=== PATIENT | female | born 1965 | race Asian ===

== ENCOUNTER 2023-09-11 19:47 | Emergency (ER) | payer SELFPAY ==
[~2023-09-11] VITALS: Ht 160 cm; Wt 70.0 kg
[2023-09-11 23:22] LABS: BASOPHILS % (AUTO) 0.9 % (0.0-2.0); EOSINOPHILS % (AUTO) 2.9 % (1.0-6.0); HEMATOCRIT 24.8 % (36-46); HEMOGLOBIN 8.1 g/dL (12.0-16.0); LYMPHOCYTES # (AUTO) 2.9 K/uL (1.0-4.8); LYMPHOCYTES % (AUTO) 33.5 % (22.0-44.0); MEAN CORPUSCULAR HEMOGLOBIN 30.1 pg (26.0-34.0); MEAN CORPUSCULAR HGB CONC 32.5 G/dL (31.0-37.0); MEAN CORPUSCULAR VOLUME 93 fL (80-100); MONOCYTES # (AUTO) 0.7 K/uL (0.1-1.0); MONOCYTES % (AUTO) 7.7 % (2.0-9.0); NEUTROPHILS # (AUTO) 4.7 K/uL (1.8-7.7); PLATELET COUNT (AUTO) 284 K/uL (150-450); RED BLOOD CELL COUNT(AUTO) 2.68 MIL/uL (4.00-5.20); RED CELL DISTRIBUTION WIDTH 13.7 % (11.5-14.5); WHITE BLOOD COUNT (AUTO) 8.6 K/uL (4.5-11.0)
[2023-09-12] MEDS: GELATIN SPONGE,ABSORBABLE 50 MM TP ONE (00:36)
[2023-09-12 00:49] VITALS: BP 124/71; PULSE 71; RESP 18; TEMP 98.3
== END 2023-09-12 02:04 | disposition home or self-care (01) ==
LOC: EMS 19:47
DX: I83.892 Varicose veins of left lower extremity with other complications (principal); D64.9 Anemia, unspecified
CPT/HCPCS: 85025; 99283

== ENCOUNTER 2024-07-17 17:19 | Inpatient (IN) | payer MEDICAID ==
[~2024-07-17] VITALS: Ht 149.9 cm; Wt 67.0 kg
[2024-07-17] MEDS ORDERED: 0.9% SODIUM CHLORIDE 10 ML SYRINGE IVP PRN (20:45)
[2024-07-17 21:02] LABS: BASOPHILS % (AUTO) 1.1 % (0.0-2.0); EOSINOPHILS % (AUTO) 3.3 % (1.0-6.0); HEMATOCRIT 42.4 % (36-46); LYMPHOCYTES # (AUTO) 2.3 K/uL (1.0-4.8); LYMPHOCYTES % (AUTO) 24.1 % (22.0-44.0); MEAN CORPUSCULAR HEMOGLOBIN 29.9 pg (26.0-34.0); MEAN CORPUSCULAR HGB CONC 32.9 G/dL (31.0-37.0); MEAN CORPUSCULAR VOLUME 91 fL (80-100); MONOCYTES # (AUTO) 0.8 K/uL (0.1-1.0); MONOCYTES % (AUTO) 8.4 % (2.0-9.0); NEUTROPHILS # (AUTO) 5.9 K/uL (1.8-7.7); NEUTROPHILS % (AUTO) 63.1 % (40.0-70.0); PLATELET COUNT (AUTO) 233 K/uL (150-450); RED BLOOD CELL COUNT(AUTO) 4.66 MIL/uL (4.00-5.20); RED CELL DISTRIBUTION WIDTH 13.6 % (11.5-14.5); WHITE BLOOD COUNT (AUTO) 9.4 K/uL (4.5-11.0)
[2024-07-17 21:09] LABS: ANION GAP 5 mmol/L (8-16); CALCIUM, TOTAL 8.9 mg/dL (8.8-10.5); CARBON DIOXIDE 29 mmol/L (22-29); CHLORIDE 104 mmol/L (98-107); CREATININE 0.74 mg/dL (0.60-1.30); GLOMERULAR FILTR. RATE CALC > 60 mL/min (>60); GLUCOSE,RANDOM 101 mg/dL (70-110); POTASSIUM 3.8 mmol/L (3.5-5.1); SODIUM SERUM 138 mmol/L (136-145); UREA NITROGEN, BLOOD 17 mg/dL (7-18)
[2024-07-17 21:14] LABS: PROTHROMBIN TIME 9.8 SEC (9.4-11.6)
[2024-07-17 21:18] LABS: TROPONIN I-HIGH SENSITIVITY 7 ng/L (<51)
[2024-07-17] MEDS: VANCOMYCIN 1.25 GM/WATER(PEG) 250 ML IV ONE (21:29)
[2024-07-17] MEDS: SODIUM CHLORIDE 0.9% 1,850 ML IV ONE (21:29)
[2024-07-17] MEDS ORDERED: MAGNESIUM HYDROXIDE SUSPENSION 30 ML UDCUP PO PRN (23:00)
[2024-07-17] MEDS ORDERED: IPRATROPIUM BROMIDE 0.5 MG/2.5 ML NEB SOLUTION NEB PRN (23:00)
[2024-07-17] MEDS ORDERED: ONDANSETRON HCL 4 MG/2 ML VIAL IVP PRN (23:00)
[2024-07-17] MEDS ORDERED: ZOLPIDEM TARTRATE 5 MG TABLET PO PRN (23:00)
[2024-07-17] MEDS ORDERED: DEXTROSE 50%-WATER 25 GM/50 ML SYRINGE IVP PRN (23:00)
[2024-07-17] MEDS ORDERED: BISACODYL 10 MG RECTAL RECTAL SUPPOSITORY PR PRN (23:00)
[2024-07-17] MEDS ORDERED: ALBUTEROL SULFATE 2.5 MG/0.5 ML NEB SOLUTION NEB PRN (23:00)
[2024-07-17 23:50] LABS: APPEARANCE,URINE CLEAR (CLEAR); BILIRUBIN,URINE NEGATIVE (NEGATIVE); COLOR,URINE COLORLESS (YELLOW); GLUCOSE, URINE (UA) NEGATIVE (NEGATIVE); KETONES,URINE NEGATIVE (NEGATIVE); LEUKOCYTE ESTERASE ,URINE MODERATE (NEGATIVE); NITRATE,URINE NEGATIVE (NEGATIVE); OCCULT BLOOD,URINE NEGATIVE (NEGATIVE); PROTEIN,URINE NEGATIVE (NEGATIVE); UROBILINOGEN,URINE <=1.0 mg/dL (<=1.0)
[2024-07-17] MEDS: PIPERACILLIN/TAZO 3.375 GM/D5W 50 ML IV SCH (23:57)
[2024-07-17] MEDS: LOSARTAN POTASSIUM 50 MG TABLET PO ONE (23:58)
[2024-07-17] MEDS: HEPARIN SODIUM,PORCINE 5,000 UNITS/ML VIAL SQ SCH (23:58)
[2024-07-18] VITALS (7 sets, daily range): BP systolic 130–151; BP diastolic 62–89; PULSE 66–99; RESP 18–20; TEMP 97.7–99.7; O2SAT 97–100
[2024-07-18 00:04] LABS: BACTERIA,URINE Rare /HPF (None Seen); RBC,URINE None Seen /HPF (0-2); SQUAMOUS EPITHELIAL CELL,UR Rare /LPF (None Seen)
[2024-07-18] MEDS: MORPHINE SULFATE 2 MG/ML SYRINGE IVP PRN (05:05)
[2024-07-18] MEDS: HydrALAZINE HCL 20 MG/ML VIAL IVP ONE (05:28)
[2024-07-18 07:29] LABS: ANION GAP 8 mmol/L (8-16); CALCIUM, TOTAL 8.6 mg/dL (8.8-10.5); CARBON DIOXIDE 26 mmol/L (22-29); CHLORIDE 105 mmol/L (98-107); CREATININE 0.77 mg/dL (0.60-1.30); GLOMERULAR FILTR. RATE CALC > 60 mL/min (>60); GLUCOSE,RANDOM 229 mg/dL (70-110); POTASSIUM 3.8 mmol/L (3.5-5.1); SODIUM SERUM 139 mmol/L (136-145); UREA NITROGEN, BLOOD 9 mg/dL (7-18)
[2024-07-18] MEDS: PANTOPRAZOLE SODIUM 40 MG/VIAL IVP SCH (08:02)
[2024-07-18] MEDS: CLOTRIMAZOLE 1% 10 ML SOLUTION TP SCH (08:02)
[2024-07-18] MEDS: DOCUSATE SODIUM 100 MG CAPSULE PO SCH (08:03)
[2024-07-18] MEDS ORDERED: SODIUM CHLORIDE 0.9% 500 ML IV ONE (09:11)
[2024-07-18] MEDS: VANCOMYCIN 750 MG/WATER(PEG) 150 ML IV SCH (09:14)
[2024-07-18 12:35] LABS: GLUCOMETER DEV NAME(LOC) 6S.2; GLUCOSE,POINT OF CARE 88 MG/DL (70-110)
[2024-07-18] MEDS: ACETAMINOPHEN 325 MG TABLET PO PRN (15:56)
[2024-07-18] MEDS: INSULIN LISPRO 100 UNITS/ML SQ PRN (20:30)
[2024-07-18 21:31] LABS: GLUCOMETER DEV NAME(LOC) 6S.2; GLUCOSE,POINT OF CARE 114 MG/DL (70-110)
[2024-07-19 04:07] LABS: HEPATITIS C AB (EIA) Non Reactive (Non Reactive)
[2024-07-19 04:33] VITALS: BP 122/64; PULSE 76; RESP 18; TEMP 98.4; O2SAT 96
[2024-07-19] MEDS: HYDROCODONE/ACETAMINOPHEN 5-325 MG TABLET PO PRN (05:11)
[2024-07-19 06:05] LABS: GLUCOMETER DEV NAME(LOC) 6S.1D; GLUCOSE,POINT OF CARE 79 MG/DL (70-110)
[2024-07-19 06:05] LABS: GLUCOMETER DEV NAME(LOC) 6S.1D; GLUCOSE,POINT OF CARE 204 MG/DL (70-110)
[2024-07-19 06:06] LABS: GLUCOMETER DEV NAME(LOC) 6S.1D; GLUCOSE,POINT OF CARE 134 MG/DL (70-110)
[2024-07-19 06:18] LABS: ANION GAP 5 mmol/L (8-16); CALCIUM, TOTAL 8.8 mg/dL (8.8-10.5); CARBON DIOXIDE 28 mmol/L (22-29); CHLORIDE 106 mmol/L (98-107); CREATININE 0.64 mg/dL (0.60-1.30); GLOMERULAR FILTR. RATE CALC > 60 mL/min (>60); GLUCOSE,RANDOM 129 mg/dL (70-110); POTASSIUM 3.5 mmol/L (3.5-5.1); SODIUM SERUM 138 mmol/L (136-145); UREA NITROGEN, BLOOD 21 mg/dL (7-18)
[2024-07-19] MEDS: VANCOMYCIN 1GM/WATER(PEG/NADA) 200 ML IV SCH (08:22)
[2024-07-19 08:40] VITALS: BP 133/68; PULSE 66; RESP 18; TEMP 97.6; O2SAT 98
[2024-07-19 16:45] VITALS: BP 159/74; PULSE 81; RESP 18; TEMP 98.1; O2SAT 100
[2024-07-19] MEDS ORDERED: 0.9% SODIUM CHLORIDE 10 ML SYRINGE IVP ONE (17:33)
[2024-07-19] MEDS ORDERED: IOHEXOL 300 MG/ML 100 ML VIAL ONE (17:33)
[2024-07-19] MEDS ORDERED: SODIUM CHLORIDE 0.9% 100 ML ONE (17:33)
[2024-07-19 20:05] VITALS: BP 179/81; PULSE 78; RESP 18; TEMP 98.2; O2SAT 99
[2024-07-19] MEDS: HydrALAZINE HCL 20 MG/ML VIAL IVP PRN (20:27)
[2024-07-19 21:42] VITALS: BP 140/61; PULSE 97; RESP 19; O2SAT 97
[2024-07-20 00:45] LABS: GLUCOMETER DEV NAME(LOC) 6N.2B; GLUCOSE,POINT OF CARE 124 MG/DL (70-110)
[2024-07-20 00:50] LABS: GLUCOMETER DEV NAME(LOC) 6S.1D; GLUCOSE,POINT OF CARE 133 MG/DL (70-110)
[2024-07-20 04:07] VITALS: BP 126/69; PULSE 80; RESP 18; TEMP 98.2; O2SAT 97
[2024-07-20 06:25] LABS: GLUCOMETER DEV NAME(LOC) 6S.2; GLUCOSE,POINT OF CARE 142 MG/DL (70-110)
[2024-07-20 06:44] LABS: ANION GAP 10 mmol/L (8-16); CALCIUM, TOTAL 8.7 mg/dL (8.8-10.5); CARBON DIOXIDE 25 mmol/L (22-29); CHLORIDE 104 mmol/L (98-107); CREATININE 0.66 mg/dL (0.60-1.30); GLOMERULAR FILTR. RATE CALC > 60 mL/min (>60); GLUCOSE,RANDOM 114 mg/dL (70-110); POTASSIUM 3.4 mmol/L (3.5-5.1); SODIUM SERUM 139 mmol/L (136-145); UREA NITROGEN, BLOOD 17 mg/dL (7-18)
[2024-07-20 08:03] VITALS: BP 120/69; PULSE 74; RESP 20; TEMP 97.5; O2SAT 98
[2024-07-20] MEDS ORDERED: SODIUM CHLORIDE 0.9% 500 ML IV ONE (12:50)
[2024-07-20 15:37] VITALS: BP 115/77; PULSE 75; RESP 18; TEMP 98.4; O2SAT 98
[2024-07-20 19:56] VITALS: BP 135/67; PULSE 74; RESP 18; TEMP 97.7; O2SAT 96
[2024-07-20 20:05] LABS: GLUCOMETER DEV NAME(LOC) 6S.1D; GLUCOSE,POINT OF CARE 103 MG/DL (70-110)
[2024-07-20 22:30] LABS: GLUCOMETER DEV NAME(LOC) 6S.1D; GLUCOSE,POINT OF CARE 186 MG/DL (70-110)
[2024-07-21 04:49] VITALS: BP 139/69; PULSE 73; RESP 18; TEMP 98.2; O2SAT 98
[2024-07-21 06:40] LABS: GLUCOMETER DEV NAME(LOC) 6S.2; GLUCOSE,POINT OF CARE 114 MG/DL (70-110)
[2024-07-21 07:13] LABS: ANION GAP 7 mmol/L (8-16); CALCIUM, TOTAL 8.8 mg/dL (8.8-10.5); CARBON DIOXIDE 26 mmol/L (22-29); CHLORIDE 106 mmol/L (98-107); CREATININE 0.67 mg/dL (0.60-1.30); GLOMERULAR FILTR. RATE CALC > 60 mL/min (>60); GLUCOSE,RANDOM 101 mg/dL (70-110); POTASSIUM 3.6 mmol/L (3.5-5.1); SODIUM SERUM 139 mmol/L (136-145); UREA NITROGEN, BLOOD 14 mg/dL (7-18)
[2024-07-21 08:23] VITALS: BP 123/75; PULSE 69; RESP 18; TEMP 98.2; O2SAT 98
[2024-07-21] MEDS ORDERED: CLOTRIMAZOLE 1% 15 GM CREAM TP ONE (09:45)
[2024-07-21 10:10] LABS: BASOPHILS % (AUTO) 1.3 % (0.0-2.0); EOSINOPHILS % (AUTO) 4.1 % (1.0-6.0); HEMATOCRIT 41.7 % (36-46); LYMPHOCYTES # (AUTO) 2.3 K/uL (1.0-4.8); MEAN CORPUSCULAR HEMOGLOBIN 30.6 pg (26.0-34.0); MEAN CORPUSCULAR HGB CONC 33.6 G/dL (31.0-37.0); MEAN CORPUSCULAR VOLUME 91 fL (80-100); MONOCYTES # (AUTO) 0.7 K/uL (0.1-1.0); MONOCYTES % (AUTO) 8.5 % (2.0-9.0); NEUTROPHILS # (AUTO) 4.5 K/uL (1.8-7.7); NEUTROPHILS % (AUTO) 57.1 % (40.0-70.0); PLATELET COUNT (AUTO) 215 K/uL (150-450); RED BLOOD CELL COUNT(AUTO) 4.58 MIL/uL (4.00-5.20); RED CELL DISTRIBUTION WIDTH 13.5 % (11.5-14.5); WHITE BLOOD COUNT (AUTO) 7.9 K/uL (4.5-11.0)
[2024-07-21 11:56] LABS: GLUCOMETER DEV NAME(LOC) 6S.2; GLUCOSE,POINT OF CARE 88 MG/DL (70-110)
[2024-07-21] MEDS: CLOTRIMAZOLE 1% 15 GM CREAM TP SCH (12:22)
[2024-07-21 14:40] VITALS: BP 140/72; PULSE 68; RESP 18; TEMP 98.2; O2SAT 95
[2024-07-21 19:39] VITALS: BP 139/80; PULSE 71; RESP 18; TEMP 97.3; O2SAT 96
[2024-07-21 20:01] LABS: GLUCOMETER DEV NAME(LOC) 6S.2; GLUCOSE,POINT OF CARE 104 MG/DL (70-110)
[2024-07-22 04:00] VITALS: BP 120/67; PULSE 73; RESP 18; TEMP 98.1; O2SAT 97
[2024-07-22 07:28] LABS: ANION GAP 8 mmol/L (8-16); CALCIUM, TOTAL 9.1 mg/dL (8.8-10.5); CARBON DIOXIDE 27 mmol/L (22-29); CHLORIDE 105 mmol/L (98-107); CREATININE 0.67 mg/dL (0.60-1.30); GLOMERULAR FILTR. RATE CALC > 60 mL/min (>60); GLUCOSE,RANDOM 99 mg/dL (70-110); POTASSIUM 3.7 mmol/L (3.5-5.1); SODIUM SERUM 140 mmol/L (136-145); UREA NITROGEN, BLOOD 20 mg/dL (7-18)
[2024-07-22 08:09] VITALS: BP 152/74; PULSE 74; RESP 19; TEMP 97.7; O2SAT 98
[2024-07-22] MEDS ORDERED: DOXY-354 PO (09:47)
[2024-07-22] MEDS ORDERED: CLOT15CR29 TP (09:47)
[2024-07-22] MEDS ORDERED: AMOX-457 PO (09:47)
[2024-07-22] MEDS ORDERED: METF-1211 PO (14:32)
[2024-07-22 15:15] VITALS: BP 154/80; PULSE 78; RESP 18; TEMP 97.7
[2024-07-22 19:06] LABS: GLUCOMETER DEV NAME(LOC) 6S.2; GLUCOSE,POINT OF CARE 96 MG/DL (70-110)
[2024-07-22 20:10] LABS: GLUCOMETER DEV NAME(LOC) 6S.1D; GLUCOSE,POINT OF CARE 178 MG/DL (70-110)
[2024-07-22 20:16] LABS: GLUCOMETER DEV NAME(LOC) 6N.2B; GLUCOSE,POINT OF CARE 94 MG/DL (70-110)
== END 2024-07-22 16:00 | disposition home or self-care (01) | DRG 383 ==
LOC: EMS 17:19 → EDH 22:59 → 6S 07-18 06:10
PROVIDERS: ADMIT Hospitalist; ATTEND Hospitalist
DX: L03.116 Cellulitis of left lower limb (principal); E11.9 Type 2 diabetes mellitus without complications; I16.0 Hypertensive urgency; Z79.899 Other long term (current) drug therapy
CPT/HCPCS: 71045; 73701; 80048; 80202; 81001; 82962; 83036; 83605; 84145; 84484; 85025; 85610; 86803; 87040; 87086; 87340; 93005; 93925; 93971; 99291; G0378; J0360; J1644; J2270; J2470; J2543; J7030; J7040; J7050; Q9967; 36415-L1; 36415-TC

== ENCOUNTER 2024-10-01 17:17 | Inpatient (IN) | payer MEDICAID ==
[~2024-10-01] VITALS: Ht 149.9 cm; Wt 61.0 kg
[~2024-10-01 17:17] MED LIST: ASPI-1450 PO; METF-1211 PO; SULF-261 PO
[2024-10-01 19:53] LABS: PLATELET COUNT (AUTO) 178 K/uL (150-450); RED BLOOD CELL COUNT(AUTO) 4.24 MIL/uL (4.00-5.20); RED CELL DISTRIBUTION WIDTH 14.3 % (11.5-14.5); WHITE BLOOD COUNT (AUTO) 23.6 K/uL (4.5-11.0)
[2024-10-01 20:03] LABS: CALCIUM, TOTAL 9.0 mg/dL (8.8-10.5); CREATININE 0.89 mg/dL (0.60-1.30); GLOMERULAR FILTR. RATE CALC > 60 mL/min (>60); GLUCOSE,RANDOM 129 mg/dL (70-110); SODIUM SERUM 136 mmol/L (136-145); UREA NITROGEN, BLOOD 16 mg/dL (7-18)
[2024-10-01 20:15] LABS: LACTIC ACID 2.4 mmol/L (0.4-2.0)
[2024-10-01 20:37] LABS: BAND NEUTROPHILS % (MANUAL) 4 % (0-5); LYMPHOCYTES % (MANUAL) 9 % (22-44); MONOCYTES % (MANUAL) 4 % (2-9); SEGMENTED NEUTROPHILS % 83 % (40-70)
[2024-10-01] MEDS: SODIUM CHLORIDE 0.9% 1,850 ML IV ONE (20:37)
[2024-10-01] MEDS ORDERED: ONDANSETRON HCL 4 MG/2 ML VIAL IVP PRN (20:45)
[2024-10-01] MEDS: DOCUSATE SODIUM 100 MG CAPSULE PO SCH (21:00)
[2024-10-01] MEDS ORDERED: PIPERACILLIN/TAZO 3.375 GM/D5W 50 ML IV SCH (21:00)
[2024-10-01] MEDS: VANCOMYCIN 1.25 GM/WATER(PEG) 250 ML IV ONE (21:32)
[2024-10-01] MEDS: PIPERACILLIN/TAZO 3.375 GM/D5W 50 ML IV ONE (21:33)
[2024-10-01] MEDS ORDERED: IOHEXOL 300 MG/ML 100 ML VIAL ONE (22:52)
[2024-10-01] MEDS ORDERED: SODIUM CHLORIDE 0.9% 100 ML ONE (22:52)
[2024-10-01 23:21] VITALS: BP 149/82; PULSE 107; RESP 18; TEMP 99.5; O2SAT 100
[2024-10-01 23:46] LABS: GLUCOMETER DEV NAME(LOC) 6N.2C; GLUCOSE,POINT OF CARE 120 MG/DL (70-110)
[2024-10-01] MEDS: HEPARIN SODIUM,PORCINE 5,000 UNITS/ML VIAL SQ SCH (23:56)
[2024-10-01] MEDS: ACETAMINOPHEN 325 MG TABLET PO PRN (23:57)
[2024-10-02] MEDS: PIPERACILLIN/TAZO 3.375 GM/D5W 50 ML IV SCH (02:40)
[2024-10-02 04:35] VITALS: BP 119/67; PULSE 93; RESP 18; TEMP 97.9; O2SAT 99
[2024-10-02] MEDS ORDERED: DEXTROSE 50%-WATER 25 GM/50 ML SYRINGE IVP PRN (05:30)
[2024-10-02 05:46] LABS: GLUCOMETER DEV NAME(LOC) 6N.2C; GLUCOSE,POINT OF CARE 114 MG/DL (70-110)
[2024-10-02] MEDS ORDERED: SODIUM CHLORIDE 0.9% 500 ML IV ONE (06:20)
[2024-10-02 06:53] LABS: PLATELET COUNT (AUTO) 173 K/uL (150-450); RED BLOOD CELL COUNT(AUTO) 3.99 MIL/uL (4.00-5.20); RED CELL DISTRIBUTION WIDTH 14.1 % (11.5-14.5); WHITE BLOOD COUNT (AUTO) 21.9 K/uL (4.5-11.0)
[2024-10-02 07:21] LABS: CALCIUM, TOTAL 7.9 mg/dL (8.8-10.5); CREATININE 0.72 mg/dL (0.60-1.30); GLOMERULAR FILTR. RATE CALC > 60 mL/min (>60); GLUCOSE,RANDOM 99 mg/dL (70-110); SODIUM SERUM 138 mmol/L (136-145); UREA NITROGEN, BLOOD 8 mg/dL (7-18)
[2024-10-02] MEDS ORDERED: POTASSIUM CHL 10 MEQ/WATER 50 ML IV PRN (07:45)
[2024-10-02] MEDS ORDERED: MAGNESIUM SULFATE 2 GM/WATER 50 ML IV PRN (07:45)
[2024-10-02] MEDS ORDERED: MAGNESIUM OXIDE 400 MG TABLET PO PRN (07:45)
[2024-10-02] MEDS ORDERED: MAGNESIUM SULFATE 4 GM/WATER 100 ML IV PRN (07:45)
[2024-10-02 08:00] VITALS: BP 110/72; PULSE 97; RESP 20; TEMP 98.6; O2SAT 97
[2024-10-02] MEDS: VANCOMYCIN 750 MG/WATER(PEG) 150 ML IV SCH (08:21)
[2024-10-02] MEDS: POTASSIUM CHLORIDE 20 MEQ ER TABLET PO PRN (08:22)
[2024-10-02] MEDS: ASPIRIN 81 MG CHEWABLE TABLET PO SCH (08:23)
[2024-10-02] MEDS ORDERED: GADOTERATE MEGLUMINE 10 MMOL/20 ML VIAL IVP ONE (09:15)
[2024-10-02 12:01] LABS: GLUCOMETER DEV NAME(LOC) 6N.2C; GLUCOSE,POINT OF CARE 91 MG/DL (70-110)
[2024-10-02 16:00] VITALS: BP 122/66; PULSE 96; RESP 20; TEMP 99.1; O2SAT 100
[2024-10-02 18:15] LABS: GLUCOMETER DEV NAME(LOC) 6N.2C; GLUCOSE,POINT OF CARE 96 MG/DL (70-110)
[2024-10-02] MEDS: INSULIN LISPRO 100 UNITS/ML SQ PRN (20:04)
[2024-10-02 20:08] VITALS: BP 92/54; PULSE 95; RESP 18; TEMP 99; O2SAT 96
[2024-10-02 20:53] VITALS: BP 113/65; RESP 18; O2SAT 98
[2024-10-03 03:45] VITALS: BP 137/77; PULSE 102; RESP 19; TEMP 99; O2SAT 98
[2024-10-03 07:36] LABS: GLUCOMETER DEV NAME(LOC) 6N.2C; GLUCOSE,POINT OF CARE 119 MG/DL (70-110)
[2024-10-03 07:36] LABS: GLUCOMETER DEV NAME(LOC) 4E.2; GLUCOSE,POINT OF CARE 215 MG/DL (70-110)
[2024-10-03 07:59] LABS: CALCIUM, TOTAL 8.2 mg/dL (8.8-10.5); CREATININE 0.67 mg/dL (0.60-1.30); GLOMERULAR FILTR. RATE CALC > 60 mL/min (>60); GLUCOSE,RANDOM 104 mg/dL (70-110); SODIUM SERUM 137 mmol/L (136-145); UREA NITROGEN, BLOOD 9 mg/dL (7-18)
[2024-10-03 08:29] VITALS: BP 116/76; PULSE 92; RESP 18; TEMP 98.4; O2SAT 97
[2024-10-03] MEDS: POTASSIUM CHLORIDE 10% 40 MEQ/30 ML LIQUID UDCUP PO ONE (12:42)
[2024-10-03 13:15] LABS: GLUCOMETER DEV NAME(LOC) 4E.2; GLUCOSE,POINT OF CARE 120 MG/DL (70-110)
[2024-10-03 15:21] VITALS: BP 102/67; PULSE 82; RESP 18; TEMP 97.2; O2SAT 100
[2024-10-03] MEDS: VANCOMYCIN 750 MG/WATER(PEG) 150 ML IV SCH (16:38)
[2024-10-03] MEDS: COLLAGENASE 250 UNITS/GM 30 GM OINTMENT TP SCH (21:19)
[2024-10-03 21:20] VITALS: BP 134/73; PULSE 89; RESP 18; TEMP 98.8; O2SAT 97
[2024-10-03 21:26] LABS: GLUCOMETER DEV NAME(LOC) 6N.2C; GLUCOSE,POINT OF CARE 105 MG/DL (70-110)
[2024-10-03 21:51] LABS: GLUCOMETER DEV NAME(LOC) 6N.2C; GLUCOSE,POINT OF CARE 182 MG/DL (70-110)
[2024-10-04 03:26] VITALS: BP 101/50; PULSE 71; RESP 18; TEMP 98; O2SAT 99
[2024-10-04 06:05] LABS: GLUCOMETER DEV NAME(LOC) 4E.2; GLUCOSE,POINT OF CARE 125 MG/DL (70-110)
[2024-10-04 06:23] LABS: CALCIUM, TOTAL 8.4 mg/dL (8.8-10.5); CREATININE 0.68 mg/dL (0.60-1.30); GLOMERULAR FILTR. RATE CALC > 60 mL/min (>60); GLUCOSE,RANDOM 127 mg/dL (70-110); SODIUM SERUM 139 mmol/L (136-145); UREA NITROGEN, BLOOD 9 mg/dL (7-18)
[2024-10-04 08:00] VITALS: BP 149/78; PULSE 89; RESP 18; TEMP 97.8; O2SAT 100
[2024-10-04 09:06] LABS: PLATELET COUNT (AUTO) 254 K/uL (150-450); RED BLOOD CELL COUNT(AUTO) 3.77 MIL/uL (4.00-5.20); RED CELL DISTRIBUTION WIDTH 14.6 % (11.5-14.5); WHITE BLOOD COUNT (AUTO) 19.5 K/uL (4.5-11.0)
[2024-10-04 14:00] LABS: GLUCOMETER DEV NAME(LOC) 4E.2; GLUCOSE,POINT OF CARE 125 MG/DL (70-110)
[2024-10-04 15:00] VITALS: BP 130/72; PULSE 79; RESP 19; TEMP 98; O2SAT 99
[2024-10-04 19:45] VITALS: BP 119/72; PULSE 84; RESP 18; TEMP 98.1; O2SAT 98
[2024-10-04 22:25] LABS: GLUCOMETER DEV NAME(LOC) 4E.2; GLUCOSE,POINT OF CARE 163 MG/DL (70-110)
[2024-10-04 23:06] LABS: GLUCOMETER DEV NAME(LOC) 6N.2C; GLUCOSE,POINT OF CARE 122 MG/DL (70-110)
[2024-10-05 03:47] VITALS: BP 127/68; PULSE 77; RESP 18; TEMP 98; O2SAT 99
[2024-10-05 06:53] LABS: CALCIUM, TOTAL 8.4 mg/dL (8.8-10.5); CREATININE 0.70 mg/dL (0.60-1.30); GLOMERULAR FILTR. RATE CALC > 60 mL/min (>60); GLUCOSE,RANDOM 109 mg/dL (70-110); SODIUM SERUM 140 mmol/L (136-145); UREA NITROGEN, BLOOD 7 mg/dL (7-18)
[2024-10-05 08:06] LABS: GLUCOMETER DEV NAME(LOC) 6N.2C; GLUCOSE,POINT OF CARE 130 MG/DL (70-110)
[2024-10-05 09:25] VITALS: BP 164/79; PULSE 87; RESP 18; TEMP 98; O2SAT 99
[2024-10-05] MEDS ORDERED: SODIUM CHLORIDE 0.9% 500 ML IV ONE (10:16)
[2024-10-05 12:40] LABS: GLUCOMETER DEV NAME(LOC) 4E.2; GLUCOSE,POINT OF CARE 116 MG/DL (70-110)
[2024-10-05 15:26] VITALS: BP 138/78; PULSE 89; RESP 18; TEMP 97.7; O2SAT 98
[2024-10-05] MEDS: OxyCODONE HCL/ACETAMINOPHEN 5-325 MG TABLET PO PRN (16:16)
[2024-10-05 19:51] LABS: GLUCOMETER DEV NAME(LOC) 6N.2C; GLUCOSE,POINT OF CARE 122 MG/DL (70-110)
[2024-10-05 19:59] VITALS: BP 128/71; PULSE 86; RESP 18; TEMP 99; O2SAT 98
[2024-10-05] MEDS: VANCOMYCIN 1GM/WATER(PEG/NADA) 200 ML IV SCH (21:47)
[2024-10-06 03:57] VITALS: BP 133/77; PULSE 73; RESP 18; TEMP 98.4; O2SAT 98
[2024-10-06 04:26] LABS: GLUCOMETER DEV NAME(LOC) 6N.2C; GLUCOSE,POINT OF CARE 186 MG/DL (70-110)
[2024-10-06 05:55] LABS: GLUCOMETER DEV NAME(LOC) 6N.2C; GLUCOSE,POINT OF CARE 107 MG/DL (70-110)
[2024-10-06 07:32] LABS: PLATELET COUNT (AUTO) 340 K/uL (150-450); RED BLOOD CELL COUNT(AUTO) 3.77 MIL/uL (4.00-5.20); RED CELL DISTRIBUTION WIDTH 14.1 % (11.5-14.5); WHITE BLOOD COUNT (AUTO) 13.6 K/uL (4.5-11.0)
[2024-10-06 07:38] LABS: CALCIUM, TOTAL 8.4 mg/dL (8.8-10.5); CREATININE 0.70 mg/dL (0.60-1.30); GLOMERULAR FILTR. RATE CALC > 60 mL/min (>60); GLUCOSE,RANDOM 102 mg/dL (70-110); SODIUM SERUM 139 mmol/L (136-145); UREA NITROGEN, BLOOD 7 mg/dL (7-18)
[2024-10-06 07:59] VITALS: BP 147/75; PULSE 79; RESP 18; TEMP 98.4; O2SAT 97
[2024-10-06 15:16] LABS: GLUCOMETER DEV NAME(LOC) 6N.2C; GLUCOSE,POINT OF CARE 128 MG/DL (70-110)
[2024-10-06 20:09] VITALS: BP 128/62; PULSE 89; RESP 18; TEMP 99.9; O2SAT 98
[2024-10-06 21:40] LABS: GLUCOMETER DEV NAME(LOC) 6N.2C; GLUCOSE,POINT OF CARE 151 MG/DL (70-110)
[2024-10-07 03:54] VITALS: BP 132/63; PULSE 75; RESP 18; TEMP 98.2; O2SAT 97
[2024-10-07 06:21] LABS: GLUCOMETER DEV NAME(LOC) 6N.1C; GLUCOSE,POINT OF CARE 141 MG/DL (70-110)
[2024-10-07 06:21] LABS: GLUCOMETER DEV NAME(LOC) 6N.1C; GLUCOSE,POINT OF CARE 191 MG/DL (70-110)
[2024-10-07 08:24] LABS: PLATELET COUNT (AUTO) 364 K/uL (150-450); RED BLOOD CELL COUNT(AUTO) 3.84 MIL/uL (4.00-5.20); RED CELL DISTRIBUTION WIDTH 13.9 % (11.5-14.5); WHITE BLOOD COUNT (AUTO) 12.0 K/uL (4.5-11.0)
[2024-10-07 08:37] LABS: CALCIUM, TOTAL 8.6 mg/dL (8.8-10.5); CREATININE 0.71 mg/dL (0.60-1.30); GLOMERULAR FILTR. RATE CALC > 60 mL/min (>60); GLUCOSE,RANDOM 112 mg/dL (70-110); SODIUM SERUM 138 mmol/L (136-145); UREA NITROGEN, BLOOD 12 mg/dL (7-18)
[2024-10-07 09:38] VITALS: BP 131/62; PULSE 74; RESP 18; TEMP 98.1; O2SAT 97
[2024-10-07 12:15] LABS: GLUCOMETER DEV NAME(LOC) 6N.2C; GLUCOSE,POINT OF CARE 156 MG/DL (70-110)
[2024-10-07 16:49] VITALS: BP 114/63; PULSE 78; RESP 18; TEMP 98; O2SAT 96
[2024-10-07 19:36] LABS: GLUCOMETER DEV NAME(LOC) 6N.2C; GLUCOSE,POINT OF CARE 123 MG/DL (70-110)
[2024-10-07 20:15] LABS: GLUCOMETER DEV NAME(LOC) 6N.2C; GLUCOSE,POINT OF CARE 184 MG/DL (70-110)
[2024-10-07 20:27] VITALS: BP 134/60; PULSE 84; RESP 18; TEMP 99.9; O2SAT 97
[2024-10-08 04:10] VITALS: BP 135/73; PULSE 81; RESP 18; TEMP 98.8; O2SAT 100
[2024-10-08 06:35] LABS: GLUCOMETER DEV NAME(LOC) 6N.2C; GLUCOSE,POINT OF CARE 116 MG/DL (70-110)
[2024-10-08 06:54] LABS: PLATELET COUNT (AUTO) 393 K/uL (150-450); RED BLOOD CELL COUNT(AUTO) 3.79 MIL/uL (4.00-5.20); RED CELL DISTRIBUTION WIDTH 14.1 % (11.5-14.5); WHITE BLOOD COUNT (AUTO) 11.0 K/uL (4.5-11.0)
[2024-10-08 07:12] LABS: CALCIUM, TOTAL 8.8 mg/dL (8.8-10.5); CREATININE 0.64 mg/dL (0.60-1.30); GLOMERULAR FILTR. RATE CALC > 60 mL/min (>60); GLUCOSE,RANDOM 114 mg/dL (70-110); SODIUM SERUM 137 mmol/L (136-145); UREA NITROGEN, BLOOD 10 mg/dL (7-18)
[2024-10-08 09:18] VITALS: BP 128/72; PULSE 77; RESP 20; TEMP 98.1; O2SAT 99
[2024-10-08 14:21] LABS: GLUCOMETER DEV NAME(LOC) 6N.1C; GLUCOSE,POINT OF CARE 115 MG/DL (70-110)
[2024-10-08 17:02] VITALS: BP 114/53; PULSE 81; RESP 20; TEMP 98.6; O2SAT 98
[2024-10-08 20:16] VITALS: BP 137/64; PULSE 91; RESP 19; TEMP 98.6; O2SAT 96
[2024-10-08 22:56] LABS: GLUCOMETER DEV NAME(LOC) 6N.2C; GLUCOSE,POINT OF CARE 173 MG/DL (70-110)
[2024-10-09 04:22] VITALS: BP 136/65; PULSE 80; RESP 19; TEMP 97.7; O2SAT 96
[2024-10-09 06:21] LABS: GLUCOMETER DEV NAME(LOC) 6N.1C; GLUCOSE,POINT OF CARE 133 MG/DL (70-110)
[2024-10-09 06:53] LABS: CALCIUM, TOTAL 8.7 mg/dL (8.8-10.5); CREATININE 0.75 mg/dL (0.60-1.30); GLOMERULAR FILTR. RATE CALC > 60 mL/min (>60); GLUCOSE,RANDOM 124 mg/dL (70-110); SODIUM SERUM 138 mmol/L (136-145); UREA NITROGEN, BLOOD 13 mg/dL (7-18)
[2024-10-09 10:17] VITALS: BP 131/50; PULSE 90; RESP 18; TEMP 97.7; O2SAT 97
[2024-10-09 13:07] LABS: PLATELET COUNT (AUTO) 413 K/uL (150-450); RED BLOOD CELL COUNT(AUTO) 3.83 MIL/uL (4.00-5.20); RED CELL DISTRIBUTION WIDTH 14.3 % (11.5-14.5); WHITE BLOOD COUNT (AUTO) 11.0 K/uL (4.5-11.0)
[2024-10-09 14:56] LABS: GLUCOMETER DEV NAME(LOC) 6N.2C; GLUCOSE,POINT OF CARE 120 MG/DL (70-110)
[2024-10-09 15:47] VITALS: BP 124/77; PULSE 87; RESP 18; TEMP 98.1; O2SAT 100
[2024-10-09 18:25] LABS: GLUCOMETER DEV NAME(LOC) 6N.1C; GLUCOSE,POINT OF CARE 122 MG/DL (70-110)
[2024-10-09] MEDS ORDERED: SODIUM CHLORIDE 0.9% 500 ML IV ONE (20:09)
[2024-10-09 20:30] VITALS: BP 123/71; PULSE 80; RESP 18; TEMP 98.4; O2SAT 98
[2024-10-10 06:00] LABS: GLUCOMETER DEV NAME(LOC) 6S.2; GLUCOSE,POINT OF CARE 135 MG/DL (70-110)
[2024-10-10 06:06] VITALS: BP 134/96; PULSE 99; RESP 19; TEMP 99.3; O2SAT 99
[2024-10-10 06:16] LABS: GLUCOMETER DEV NAME(LOC) 6N.2C; GLUCOSE,POINT OF CARE 139 MG/DL (70-110)
[2024-10-10 06:47] LABS: PLATELET COUNT (AUTO) 446 K/uL (150-450); RED BLOOD CELL COUNT(AUTO) 3.98 MIL/uL (4.00-5.20); RED CELL DISTRIBUTION WIDTH 13.6 % (11.5-14.5); WHITE BLOOD COUNT (AUTO) 11.4 K/uL (4.5-11.0)
[2024-10-10 07:08] LABS: CALCIUM, TOTAL 8.9 mg/dL (8.8-10.5); CREATININE 0.74 mg/dL (0.60-1.30); GLOMERULAR FILTR. RATE CALC > 60 mL/min (>60); GLUCOSE,RANDOM 141 mg/dL (70-110); SODIUM SERUM 139 mmol/L (136-145); UREA NITROGEN, BLOOD 13 mg/dL (7-18)
[2024-10-10 12:36] LABS: GLUCOMETER DEV NAME(LOC) 6S.2; GLUCOSE,POINT OF CARE 98 MG/DL (70-110)
[2024-10-10 17:40] LABS: GLUCOMETER DEV NAME(LOC) 6N.1C; GLUCOSE,POINT OF CARE 135 MG/DL (70-110)
[2024-10-10 20:12] VITALS: BP 121/57; PULSE 82; RESP 18; TEMP 98.4; O2SAT 96
[2024-10-10 20:30] LABS: GLUCOMETER DEV NAME(LOC) 6N.1C; GLUCOSE,POINT OF CARE 177 MG/DL (70-110)
[2024-10-11 03:48] VITALS: BP 128/67; PULSE 70; RESP 18; TEMP 98.1; O2SAT 99
[2024-10-11 05:51] LABS: GLUCOMETER DEV NAME(LOC) 4E.2; GLUCOSE,POINT OF CARE 104 MG/DL (70-110)
[2024-10-11 07:08] LABS: PLATELET COUNT (AUTO) 420 K/uL (150-450); RED BLOOD CELL COUNT(AUTO) 3.76 MIL/uL (4.00-5.20); RED CELL DISTRIBUTION WIDTH 13.9 % (11.5-14.5); WHITE BLOOD COUNT (AUTO) 9.9 K/uL (4.5-11.0)
[2024-10-11 07:22] LABS: CALCIUM, TOTAL 8.8 mg/dL (8.8-10.5); CREATININE 0.62 mg/dL (0.60-1.30); GLOMERULAR FILTR. RATE CALC > 60 mL/min (>60); GLUCOSE,RANDOM 105 mg/dL (70-110); SODIUM SERUM 142 mmol/L (136-145); UREA NITROGEN, BLOOD 13 mg/dL (7-18)
[2024-10-11 08:00] VITALS: BP 127/57; PULSE 83; RESP 20; TEMP 98.2; O2SAT 100
[2024-10-11 08:37] VITALS: BP 133/67; PULSE 68; RESP 17; TEMP 97.9; O2SAT 98
[2024-10-11 16:00] VITALS: BP 135/67; PULSE 68; RESP 17; TEMP 97.9; O2SAT 98
[2024-10-11 17:46] LABS: GLUCOMETER DEV NAME(LOC) 6N.1C; GLUCOSE,POINT OF CARE 124 MG/DL (70-110)
[2024-10-11 20:04] VITALS: BP 125/67; PULSE 80; RESP 18; TEMP 98.1; O2SAT 99
[2024-10-11 22:36] LABS: GLUCOMETER DEV NAME(LOC) 6N.1C; GLUCOSE,POINT OF CARE 129 MG/DL (70-110)
[2024-10-12 05:06] VITALS: BP 127/67; PULSE 71; RESP 18; TEMP 98.4; O2SAT 97
[2024-10-12 05:30] LABS: GLUCOMETER DEV NAME(LOC) 6S.2; GLUCOSE,POINT OF CARE 123 MG/DL (70-110)
[2024-10-12 06:03] LABS: PLATELET COUNT (AUTO) 447 K/uL (150-450); RED BLOOD CELL COUNT(AUTO) 3.81 MIL/uL (4.00-5.20); RED CELL DISTRIBUTION WIDTH 13.8 % (11.5-14.5); WHITE BLOOD COUNT (AUTO) 9.9 K/uL (4.5-11.0)
[2024-10-12 07:40] LABS: GLUCOMETER DEV NAME(LOC) 4E.2; GLUCOSE,POINT OF CARE 124 MG/DL (70-110)
[2024-10-12 09:27] VITALS: BP 122/52; PULSE 88; RESP 20; TEMP 98.2; O2SAT 98
[2024-10-12] MEDS ORDERED: RIFA300C63 PO (10:32)
[2024-10-12] MEDS ORDERED: CIPR-515 PO (10:32)
[2024-10-12 12:46] LABS: GLUCOMETER DEV NAME(LOC) 6S.2; GLUCOSE,POINT OF CARE 93 MG/DL (70-110)
== END 2024-10-12 17:30 | disposition home or self-care (01) | DRG 720 ==
LOC: EMS 17:17 → EDH 20:35 → 6S 23:16
PROVIDERS: ADMIT Internal Medicine; ATTEND Internal Medicine
DX: A41.9 Sepsis, unspecified organism (principal); M72.6 Necrotizing fasciitis; L03.116 Cellulitis of left lower limb; E11.9 Type 2 diabetes mellitus without complications; B95.62 Methicillin resistant Staphylococcus aureus infection as the cause of diseases classified elsewhere; Z83.3 Family history of diabetes mellitus; Z79.82 Long term (current) use of aspirin
CPT/HCPCS: 71045; 73700; 73701; 73722; 80048; 80202; 82040; 82962; 83605; 83735; 84132; 85025; 87040; 87070; 87186; 87205; 93005; 93926; 93971; 99285; G0378; J1644; J2543; J7040; J7050; Q9967; 36415-L1; 36415-TC